=== PATIENT | female | born 1965 | race American Indian/Alaskan Native ===

== ENCOUNTER 2016-08-24 10:07 | Emergency (ER) | payer BC ==
[2016-08-24] MEDS ORDERED: Aspirin 81 MG Tab.Chew PO ONE (10:15)
--- NOTE | 2016-08-24 10:29 | EDM.PDOC ---
ED HISTORY OF PRESENT ILLNESS - General Chief Complaint: Chest Pain Stated Complaint: CARDIC ISSUES Time Seen by Provider: 08/24/16 10:15 Source of Information: Reports: Patient History Limitations: Reports: No limitations - History of Present Illness INITIAL COMMENTS - FREE TEXT/NARRATIVE: HISTORY AND PHYSICAL: History of present illness: [Patient is sent from primary care clinic to be evaluated for complaints of chest pressure. One week ago she was seen in the clinic and began treatment for bronchitis with an inhaler. She feels as though her cough symptoms are improving but over the past week she's had chest pressure that comes and goes. She notices it more when she coughs. The pain does not cause shortness of breath. She describes as a pressure over the center of her chest. At its most, the pain is a 3/10. Today in the ER pain is 1-2/10. she denies nausea and vomiting. She's had no radiation of pain or pressure into her neck jaw or shoulder. No pain down her arms. No pain to her mid back. She's had intermittent episodes of hot flashes which she has attributed to menopause. No episodes of profuse sweating. Denies fever and chills. Has had no swelling in her feet or lower legs. She is fasting this morning. 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 She smoked for a short time while she was in college.] Review of systems: As per history of present illness and below otherwise all systems reviewed and negative. Past medical history: As per history of present illness and as reviewed below otherwise noncontributory. Surgical history: As per history of present illness and as reviewed below otherwise noncontributory. Social history: No reported history of drug or alcohol abuse. Family history: As per history of present illness and as reviewed below otherwise noncontributory. Physical exam: General: Well-developed well-nourished female in no acute distress. HEENT: Atraumatic, normocephalic. Wears glasses. negative for conjunctival pallor or scleral icterus. mucous membranes moist and pink. throat clear, neck supple, nontender, no lymphadenopathy. trachea midline. Lungs: Clear to auscultation, breath sounds equal bilaterally, is breathing easily. chest nontender. Scarring to the chest is consistent with previous sternotomy. Heart: S1S2, regular rate and rhythm. negative for clicks, rubs, or JVD. Abdomen: Soft, nondistended, nontender. Normoactive bowel sounds no guarding masses or rebound. Negative for hepatosplenomegaly. Negative for costovertebral tenderness. Pelvis: Stable nontender. Genitourinary: Deferred. Rectal: Deferred. Extremities: Atraumatic, negative for cords or calf pain. Neurovascular unremarkable. Neuro: Awake, alert, oriented. Motor and sensory unremarkable throughout. Exam nonfocal. Diagnostics: [CBC, CMP, urinalysis, troponin, chest x-ray, EKG, PT/INR] Therapeutics: [Aspirin 324 mg, DuoNeb] Impression: [Chest pain] Plan: [Discussed with patient that chest x-ray, EKG and troponin are normal in ER. We' ll get her a consult with Dr. Thomas, revenue cycle consultant due to chest pain she's been experiencing and her history of ASD. Discussed that her symptoms of chest discomfort are likely related to her bronchitis and she should continue to monitor. All of her questions are answered and concerns are addressed.] Definitive disposition and diagnosis as appropriate pending reevaluation and review of above. - Related Data Allergies/ADRs: Allergies Allergy/AdvReac Type Severity Reaction Status Date / Time omeprazole Allergy Hives Verified 08/24/16 10:16 Home Meds: Home Meds Pantoprazole Sodium 1 tab PO DAILY 09/11/15 [History] Past Medical History HEENT History: Reports: None Respiratory History: Reports: None Gastrointestinal History: Reports: GERD Genitourinary History: Reports: None Musculoskeletal History: Reports: Fracture Neurological History: Reports: None Psychiatric History: Reports: None Endocrine/Metabolic History: Reports: None Hematologic History: Reports: None Immunologic History: Reports: None Oncologic (Cancer) History: Reports: None Dermatologic History: Reports: None - Past Surgical History Head Surgeries/Procedures: Reports: None Cardiovascular Surgical History: Reports: Other (see below) Other Cardiovascular Surgeries/Procedures: surgery for congenital atrial septal defect GI Surgical History: Reports: Cholecystectomy Female Surgical History: Reports: None Other Musculoskeletal Surgeries/Procedures:: past surgery for fx ankle Social & Family History - Tobacco Use Smoking Status *Q: Never Smoker - Recreational Drug Use Recreational Drug Use: No Drug Use in Last 12 Months: No ED ROS GENERAL - Review of Systems Review Of Systems: ROS reveals no pertinent complaints other than HPI. ED EXAM, GENERAL - Physical Exam Exam: See Below Course - Vital Signs Last Recorded V/S: Last Vital Signs Temp 98.9 F 08/24/16 10:19 Pulse 75 08/24/16 10:19 Resp 18 08/24/16 10:19 BP 138/77 08/24/16 10:19 Pulse Ox 98 08/24/16 10:19 - Orders/Labs/Meds Orders: Active Orders 24 hr Category Date Time Status EKG Documentation Completion [RC] STAT Care 08/24/16 10:14 Active Labs: Laboratory Tests 08/24/16 08/24/16 08/24/16 Range/Units 10:21 10:21 10:21 WBC 5.21 (4.0-11.0) K/uL RBC 5.49 (4.30-5.90) M/uL Hgb 14.2 (12.0-16.0) g/dL Hct 44.6 (36.0-46.0) % MCV 81.2 (80.0-98.0) fL MCH 25.9 L (27.0-32.0) pg MCHC 31.8 (31.0-37.0) g/dL RDW Std Deviation 43.8 (28.0-62.0) fl RDW Coeff of Anai 15 (11.0-15.0) % Plt Count 219 (150-400) K/uL MPV 8.60 (7.40-12.00) fL Nucleated RBC % 0.0 /100WBC Nucleated RBCs # 0 K/uL Sodium 139 (136-146) mmol/L Potassium 4.0 (3.5-5.1) mmol/L Chloride 107 (98-110) mmol/L Carbon Dioxide 22 (21-31) mmol/L BUN 8 (6.0-23.0) mg/dL Creatinine 0.7 (0.6-1.5) mg/dL Est Cr Clr Drug Dosing 74.35 mL/min Estimated GFR (MDRD) > 60.0 ml/min Glucose 120 H (60-110) mg/dL Calcium 9.6 (8.8-10.8) mg/dL Total Bilirubin 0.9 (0.1-1.5) mg/dL AST 38 (5-40) IU/L ALT 68 H (8-54) IU/L Alkaline Phosphatase 114 (40-150) CK-MB (CK-2) 0.5 (0-6.6) ng/ml Troponin I < 0.10 (0.0-0.29) NG/ML Total Protein 8.4 H (6.0-8.0) g/dL Albumin 4.3 (3.5-5.0) g/dL Globulin 4.1 H (2.0-3.5) g/dL Albumin/Globulin Ratio 1.1 L (1.3-2.8) Urine Color Urine Appearance Urine pH (5.0-8.0) Ur Specific Wheeler (1.001-1.035) Urine Protein (NEGATIVE) mg/dL Urine Glucose (UA) (NEGATIVE) mg/dL Urine Ketones (NEGATIVE) mg/dL Urine Occult Blood (NEGATIVE) Urine Nitrite (NEGATIVE) Urine Bilirubin (NEGATIVE) Urine Urobilinogen (<2.0) EU/dL Ur Leukocyte Esterase (NEGATIVE) Urine RBC (0-2/HPF) Urine WBC (0-5/HPF) Ur Epithelial Cells (NONE-FEW) Urine Bacteria (NEGATIVE) 08/24/16 Range/Units 10:35 WBC (4.0-11.0) K/uL RBC (4.30-5.90) M/uL Hgb (12.0-16.0) g/dL Hct (36.0-46.0) % MCV (80.0-98.0) fL MCH (27.0-32.0) pg MCHC (31.0-37.0) g/dL RDW Std Deviation (28.0-62.0) fl RDW Coeff of Anai (11.0-15.0) % Plt Count (150-400) K/uL MPV (7.40-12.00) fL Nucleated RBC % /100WBC Nucleated RBCs # K/uL Sodium (136-146) mmol/L Potassium (3.5-5.1) mmol/L Chloride (98-110) mmol/L Carbon Dioxide (21-31) mmol/L BUN (6.0-23.0) mg/dL Creatinine (0.6-1.5) mg/dL Est Cr Clr Drug Dosing mL/min Estimated GFR (MDRD) ml/min Glucose (60-110) mg/dL Calcium (8.8-10.8) mg/dL Total Bilirubin (0.1-1.5) mg/dL AST (5-40) IU/L ALT (8-54) IU/L Alkaline Phosphatase (40-150) CK-MB (CK-2) (0-6.6) ng/ml Troponin I (0.0-0.29) NG/ML Total Protein (6.0-8.0) g/dL Albumin (3.5-5.0) g/dL Globulin (2.0-3.5) g/dL Albumin/Globulin Ratio (1.3-2.8) Urine Color YELLOW Urine Appearance CLEAR Urine pH 5.5 (5.0-8.0) Ur Specific Wheeler 1.010 (1.001-1.035) Urine Protein NEGATIVE (NEGATIVE) mg/dL Urine Glucose (UA) NEGATIVE (NEGATIVE) mg/dL Urine Ketones NEGATIVE (NEGATIVE) mg/dL Urine Occult Blood NEGATIVE (NEGATIVE) Urine Nitrite NEGATIVE (NEGATIVE) Urine Bilirubin NEGATIVE (NEGATIVE) Urine Urobilinogen 0.2 (<2.0) EU/dL Ur Leukocyte Esterase TRACE (NEGATIVE) Urine RBC 0-2 (0-2/HPF) Urine WBC 0-2 (0-5/HPF) Ur Epithelial Cells FEW (NONE-FEW) Urine Bacteria FEW (NEGATIVE) Meds: Medications Discontinued Medications Generic Name Dose Route Start Last Admin Trade Name Kiersten PRN Reason Stop Dose Admin Aspirin 324 mg 08/24/16 10:15 08/24/16 10:22 Aspirin PO 08/24/16 10:16 324 mg ONETIME ONE Administration Departure - Departure Time of Disposition: 11:35 Disposition: Home, Self-Care 01 Condition: good Clinical Impression: Viral bronchitis Chest pain Qualifiers: Chest pain type: other chest pain Qualified Code(s): R07.89 - Other chest pain ; R07.8 - Other chest pain Forms: ED Department Discharge Additional Instructions: The following information is given to patients seen in the emergency department who are being discharged to home. This information is to outline your options for follow-up care. We provide all patients seen in our emergency department with a follow-up referral. The need for follow-up, as well as the timing and circumstances, are variable depending upon the specifics of your emergency department visit. If you don't have a primary care physician on staff, we will provide you with a referral. We always advise you to contact your personal physician following an emergency department visit to inform them of the circumstance of the visit and for follow-up with them and/or the need for any referrals to a consulting specialist. The emergency department will also refer you to a specialist when appropriate. This referral assures that you have the opportunity for follow-up care with a specialist. All of these measure are taken in an effort to provide you with optimal care, which includes your follow-up. Under all circumstances we always encourage you to contact your private physician who remains a resource for coordinating your care. When calling for follow-up care, please make the office aware that this follow-up is from your recent emergency room visit. If for any reason you are refused follow-up, please contact the [facility] emergency department at and asked to speak to the emergency department charge nurse. [facility] [address] [place] [id number] [facility] [address] Norman Gandara [address] [place] [id number] Followup with your primary care provider in 48-72 hours. Continue inhaler and previously prescribed medications. Followup with cardiology as scheduled at the clinic listed above. Return to ER as needed as discussed
[2016-08-24 10:57] LABS: CHLORIDE,CL 107 mmol/L (98-110); SODIUM,NA 139 mmol/L (136-146)
--- NOTE | 2016-08-24 11:04 | CR ---
EXAMINATION: Two-view chest (PA and Lateral views). HISTORY: Shortness of breath. FINDINGS: The trachea is midline. The cardiomediastinal silhouette is within normal limits. No pulmonary infil trates, effusions or pneumothorax. Median sternotomy wires are noted. Osseous structures appear unremarkable. IMPRESSION: No acute cardiopulmonary process.
[2016-08-24] MEDS ORDERED: Albuterol/Ipratropium 3.0-0.5 MG/3 ML Neb Soln NEB ONE (11:27)
[2016-08-24 12:14] VITALS: BP 123/78
== END 2016-08-24 12:12 | disposition home or self-care (01) ==
LOC: MW.ED 10:07
DX: J20.8 Acute bronchitis due to other specified organisms (principal); K21.9 Gastro-esophageal reflux disease without esophagitis; R07.89 Other chest pain; Z88.8 Allergy status to other drugs, medicaments and biological substances; Z79.899 Other long term (current) drug therapy
CPT/HCPCS: 71020; 80053; 81001; 82553; 84484; 85027; 93005; 99285; A9270; 99284

== ENCOUNTER 2022-04-07 09:52 | Emergency (ER) | payer BC ==
[2022-04-07 11:16] LABS: CORONAVIRUS COVID-19 NAA NEGATIVE (NEGATIVE); INFLUENZA A NAA NEGATIVE (NEGATIVE); INFLUENZA B NAA NEGATIVE (NEGATIVE)
[2022-04-07 11:19] LABS: CARBON DIOXIDE,CO2 27.3 mmol/L (21.0-32.0); POTASSIUM,K 3.7 mmol/L (3.5-5.1)
[2022-04-07] MEDS ORDERED: Azithromycin 250 MG Tab PO STA (12:57)
[2022-04-07 13:16] VITALS: BP 160/73; PULSE 69
== END 2022-04-07 13:17 | disposition home or self-care (01) ==
LOC: MW.ED 09:52
DX: J18.9 Pneumonia, unspecified organism (principal); Z88.8 Allergy status to other drugs, medicaments and biological substances; Z79.899 Other long term (current) drug therapy; Z20.822 Contact with and (suspected) exposure to COVID-19
CPT/HCPCS: 0240U; 36415; 71045; 80048; 83735; 84484; 85025; 93005; 99285; A9270; 93010; 99283